=== PATIENT | female | born 1995 | race African-American/Black ===

== ENCOUNTER 2019-05-03 20:46 | Emergency (ER) | payer SELFPAY ==
[~2019-05-03] VITALS: Ht 165.1 cm; Wt 96.2 kg
[~2019-05-03 20:46] MED LIST: NITROFURANTOIN100 M2 ORAL; PHENAZOPYRIDIN200 MG ORAL
[2019-05-03 21:15] VITALS: BP 105/76
[2019-05-03] MEDS ORDERED: Lidocaine 1% Plain 30 ml INJ ONE (21:30)
[2019-05-03] MEDS ORDERED: Tetanus/Diptheria/Pertussis IM ONE (21:30)
--- NOTE | 2019-05-03 22:20 | Emergency Room Report ---
History of Present Illness General Chief Complaint: Upper Extremity Injury Source: Patient Present Illness HPI 23-year-old female presents with laceration to the right thumb after cutting, she was cutting vegetables, sliced radially, and a piece of her finger became loose, no numbness tingling severity is moderate, she does endorse some sharp pain aggravated with touch Allergies: Coded Allergies: No Known Allergies (Unverified , 02/09/19) Patient History Past Medical History: see triage record Last Menstrual Period: 04/17/19 Now: No : 1 Para: 1 Reviewed Nursing Documentation: PMH: Agreed; PSxH: Agreed Nursing Documentation-PMH Past Medical History: No Stated History Review of Systems All Other Systems: negative except mentioned in HPI Physical Exam Vital Signs Date Time Temp Pulse Resp B/P (MAP) Pulse Ox O2 Delivery O2 Flow Rate FiO2 05/03/19 21:07 98.8 83 18 105/76 (86) 98 Room Air General Appearance: well appearing, no apparent distress Head: normocephalic, atraumatic ENT: hearing grossly normal, normal voice Neck: full range of motion, supple Respiratory: no respiratory distress, speaking full sentences Musculoskeletal: other - Right thumb avulsion laceration radial aspect distal thumb through and through, radial median ulnar nerve intact Neurologic: alert, normal gait Psychiatric: mood/affect normal Skin: no rash Procedures Laceration/Wound Repair Laceration/Wound Repair : Consent: Verbal Wound Location: upper extremity Wound's Depth, Shape: nail-avulsed Wound Length (cm): 2 Wound Explored: clean Irrigated w/ Saline (ccs): 50 Betadine Prep?: Yes Anesthesia: 1% Lidocaine Volume Anesthetic (ccs): 10 Wound Debrided: minimal Wound Repaired With: sutures Suture Size/Type: 5:0 Number of Sutures: 3 Layer Closure?: Yes Sterile Dressing Applied?: Yes Splint Applied?: No Patient Tolerated: Well Complications: None Progress Patient with avulsion laceration of the distal thumb radial side, through and through, used piece of skin is a flap however nail has partial avulsion laceration unable to be repaired nail was removed Medical Decision Making Diagnostic Impression: Primary Impression: Laceration of thumb with damage to nail Qualified Codes: S61.111A - Laceration without foreign body of right thumb with damage to nail, initial encounter ER Course Patient with laceration to the thumb radial aspect partial avulsion laceration Skin flap placed. Patient given TDAP and abx follow-up with pcp. Other X-Ray Diagnostic Results Other X-Ray Diagnostic Results : X-Ray ordered: Right Hand # of Views/Limited Vs Complete: 3 View Indication: Pain Interpretation: no dislocation, no fractures Impression: Other - soft tissue defect radial aspect of thumb partial Electronically Signed by: Jose Howell MD Last Vital Signs Date Time Temp Pulse Resp B/P (MAP) Pulse Ox O2 Delivery O2 Flow Rate FiO2 05/03/19 21:07 98.8 83 18 105/76 (86) 98 Room Air Disposition: HOME, SELF-CARE Condition: Stable Scripts Cephalexin* (KEFLEX*) 500 Mg Tablet 500 MG ORAL EVERY 6 HOURS, #28 CAP Prov: Jose Howell MD 05/03/19 Referrals: NOT CHOSEN IPA/,REFERRING (PCP) [facility] Patient Instructions: Nail Bed Injury, [id number] Additional Instructions: The patient was provided with discharge instructions, notified to follow-up with a primary care doctor and or specialist in the next 24-48 hours, and to return to the ED if they have worsening of their symptoms. Please note that this report is being documented using [employer] technology. This can lead to erroneous entry secondary to incorrect interpretation by the dictating instrument. Jose Howell MD May 03, 2019 22:20
[2019-05-03] MEDS ORDERED: CEPHALEXIN500 M1 ORAL (22:29)
[2019-05-03 22:35] VITALS: BP 105/76
--- NOTE | 2019-05-04 14:05 | Diagnostic Imaging Report ---
Indication: Right hand pain, laceration Technique: 3 views right hand Comparison: none Findings: No acute fractures. No dislocations. No significant soft tissue gas demonstrated. No radiopaque foreign body. For joint spaces are preserved Impression: Negative
== END 2019-05-03 22:35 | disposition home or self-care (01) ==
LOC: EMR 21:06
DX: S61.111A Laceration without foreign body of right thumb with damage to nail, initial encounter (principal); W26.0XXA Contact with knife, initial encounter; Y93.G3 Activity, cooking and baking; Y92.9 Unspecified place or not applicable; Z23 Encounter for immunization
CPT/HCPCS: 12001; 73130; 81025; 90471; 90715; 99283; J2001

== ENCOUNTER 2019-09-24 00:29 | Emergency (ER) | payer SELFPAY ==
[~2019-09-24] VITALS: Ht 165.1 cm; Wt 99.8 kg
[~2019-09-24 00:29] MED LIST changes: +CEPHALEXIN500 M1 ORAL
[2019-09-24 00:50] VITALS: BP 130/82
--- NOTE | 2019-09-24 00:50 | NUR ---
ED Nurse Note: Patient walked in from home d/t lower abdominal pain, stated UTI symptoms, burning at peeing. Patient aao x 4 and ambulatory with steady gait. Patient changed into gown. No acute distress noted. Addendum: 09/24/19 at 0058 by IOROPEL ED Nurse Note: Patient walked in from home d/t lower abdominal pain, stated UTI symptoms, burning at peeing. Patient stated LMP was 07/2019 and had a positive test at home. Patient aao x 4 and ambulatory with steady gait. Patient changed into gown. No acute distress noted.
--- NOTE | 2019-09-24 00:56 | NUR ---
ED Nurse Note: ERMD at bedside.
[2019-09-24 01:12] LABS: APPEARANCE,URINE CLEAR; BILIRUBIN, URINE NEGATIVE (NEGATIVE); COLOR,URINE PALE YELLOW; GLUCOSE, URINE (UA) NEGATIVE (NEGATIVE); KETONES,URINE NEGATIVE (NEGATIVE); LEUKOCYTE ESTERASE ,URINE NEGATIVE (NEGATIVE); NITRITE,URINE NEGATIVE (NEGATIVE); PH,URINE 6.5 (4.5-8.0); PROTEIN,URINE NEGATIVE (NEGATIVE); UROBILINOGEN,URINE NORMAL MG/DL (0.0-1.0)
--- NOTE | 2019-09-24 01:12 | Emergency Room Report ---
History of Present Illness General Chief Complaint: Female Urogenital Problems Source: Patient Present Illness HPI 23-year-old female G2, P1 presents complaining of lower abdominal pain and dysuria. Symptoms present for the past 2 weeks. She states her last menstrual cycle was approximately 2 months ago. She denies any vaginal bleeding. No fevers nausea vomiting cough or shortness of breath. He does report vaginal discharge. Allergies: Coded Allergies: No Known Allergies (Unverified , 02/09/19) COVID-19 Screening Contact w/high risk pt: No Recent Travel to affected area: No Experienced COVID-19 symptoms?: No Patient History Last Menstrual Period: 2019 Now: Yes : 2 Para: 1 Reviewed Nursing Documentation: PMH: Agreed; PSxH: Agreed Review of Systems All Other Systems: negative except mentioned in HPI Physical Exam Vital Signs Date Time Temp Pulse Resp B/P (MAP) Pulse Ox O2 Delivery O2 Flow Rate FiO2 09/24/19 00:44 98.6 88 15 133/79 (97) 99 Room Air Sp02 EP Interpretation: reviewed, normal General Appearance: well appearing, no apparent distress Head: normocephalic, atraumatic Eyes: bilateral eye PERRL, bilateral eye EOMI ENT: hearing grossly normal, moist mucus membranes Neck: full range of motion, supple Respiratory: lungs clear, normal breath sounds, no rhonchi, no respiratory distress, no retraction, no wheezing Cardiovascular #1: normal peripheral pulses, regular rate, rhythm, no murmur Gastrointestinal: non tender, soft, non-distended, no guarding Genitourinary: adnexa normal, cervix normal, ext genitalia/vag normal Neurologic: alert, oriented x3, no focal defects Skin: normal color, warm/dry Medical Decision Making Diagnostic Impression: Primary Impression: Abdominal pain during Additional Impression: First trimester ER Course Patient presented with lower abdominal pain dysuria and reports of a positive test. Patient's vital signs were stable. Exam was benign. Differential included UTI, abdominal pain in early , vaginitis to name a few. Laboratory studies demonstrated mild leukocytosis. Urinalysis negative for infection. hCG elevated appropriately. Ultrasound demonstrated single viable intrauterine with a viable heart rate. Wet mount was negative. STD testing was sent. Patient again nontoxic on exam. At this time patient did not have indication for antibiotic treatment and was discharged with OB follow-up. Recommended vitamin. Recommended turn precautions. Laboratory Tests Test 09/24/19 01:01 09/24/19 01:11 Urine Color Pale yellow Urine Appearance Clear Urine pH 6.5 (4.5-8.0) Urine Specific Broussard 1.010 (1.005-1.035) Urine Protein Negative (NEGATIVE) Urine Glucose (UA) Negative (NEGATIVE) Urine Ketones Negative (NEGATIVE) Urine Blood Negative (NEGATIVE) Urine Nitrite Negative (NEGATIVE) Urine Bilirubin Negative (NEGATIVE) Urine Urobilinogen Normal MG/DL (0.0-1.0) Urine Leukocyte Esterase Negative (NEGATIVE) Urine HCG, Qualitative Positive (NEGATIVE) White Blood Count 12.9 K/UL (4.8-10.8) H Red Blood Count 5.09 M/UL (4.20-5.40) Hemoglobin 14.0 G/DL (12.0-16.0) Hematocrit 39.6 % (37.0-47.0) Mean Corpuscular Volume 78 FL (80-99) L Mean Corpuscular Hemoglobin 27.5 PG (27.0-31.0) Mean Corpuscular Hemoglobin Concent 35.4 G/DL (32.0-36.0) Red Cell Distribution Width 11.6 % (11.6-14.8) Platelet Count 177 K/UL (150-450) Mean Platelet Volume 8.1 FL (6.5-10.1) Neutrophils (%) (Auto) 59.7 % (45.0-75.0) Lymphocytes (%) (Auto) 31.7 % (20.0-45.0) Monocytes (%) (Auto) 5.9 % (1.0-10.0) Eosinophils (%) (Auto) 1.7 % (0.0-3.0) Basophils (%) (Auto) 1.1 % (0.0-2.0) Sodium Level 140 MMOL/L (136-145) Potassium Level 3.7 MMOL/L (3.5-5.1) Chloride Level 104 MMOL/L (98-107) Carbon Dioxide Level 27 MMOL/L (21-32) Blood Urea Nitrogen 8 mg/dL (7-18) Creatinine 0.9 MG/DL (0.55-1.30) Estimated Glomerular Filtration Rate > 60 mL/min (>60) Glucose Level 120 MG/DL (74-106) H Calcium Level 8.9 MG/DL (8.5-10.1) Total Bilirubin 0.4 MG/DL (0.2-1.0) Aspartate Amino Transferase (AST) 11 U/L (15-37) L Alanine Aminotransferase (ALT) 22 U/L (12-78) Alkaline Phosphatase 58 U/L (46-116) Total Protein 7.7 G/DL (6.4-8.2) Albumin 3.8 G/DL (3.4-5.0) Globulin 3.9 g/dL Albumin/Globulin Ratio 1.0 (1.0-2.7) Human Chorionic Gonadotropin, Quant [id number] mIU/mL (1-6) H Microbiology Date/Time Source Procedure Growth Status 09/24/19 01:27 Vaginal Wet Prep - Final Complete Last Vital Signs Date Time Temp Pulse Resp B/P (MAP) Pulse Ox O2 Delivery O2 Flow Rate FiO2 09/24/19 00:50 98.6 75 16 130/82 98 Room Air Status: improved Disposition: HOME, SELF-CARE Condition: Stable Matti Alcala M.D. Sep 24, 2019 01:12
--- NOTE | 2019-09-24 01:13 | NUR ---
ED Nurse Note: Blood draw completed and sent to lab.
[2019-09-24 01:45] LABS: BASOPHILS % (AUTO) 1.1 % (0.0-2.0); EOSINOPHILS % (AUTO) 1.7 % (0.0-3.0); HEMATOCRIT 39.6 % (37.0-47.0); LYMPHOCYTES % (AUTO) 31.7 % (20.0-45.0); MEAN CORPUSCULAR VOLUME 78 FL (80-99); MONOCYTES % (AUTO) 5.9 % (1.0-10.0); NEUTROPHILS % (AUTO) 59.7 % (45.0-75.0); PLATELET COUNT 177 K/UL (150-450); RED BLOOD COUNT 5.09 M/UL (4.20-5.40); RED CELL DISTRIBUTION WIDTH 11.6 % (11.6-14.8); WHITE BLOOD COUNT 12.9 K/UL (4.8-10.8)
[2019-09-24 01:54] LABS: ALANINE AMINOTRANSFERASE 22 U/L (12-78); ALBUMIN 3.8 G/DL (3.4-5.0); ALKALINE PHOSPHATASE 58 U/L (46-116); ASPARTATE AMINO TRANSFERASE 11 U/L (15-37); BILIRUBIN,TOTAL 0.4 MG/DL (0.2-1.0); BLOOD UREA NITROGEN 8 mg/dL (7-18); CALCIUM 8.9 MG/DL (8.5-10.1); CARBON DIOXIDE 27 MMOL/L (21-32); CHLORIDE 104 MMOL/L (98-107); CREATININE 0.9 MG/DL (0.55-1.30); POTASSIUM 3.7 MMOL/L (3.5-5.1); SODIUM 140 MMOL/L (136-145)
--- NOTE | 2019-09-24 03:06 | NUR ---
ED Nurse Note: Ultrasound at bedside.
[2019-09-24 03:52] VITALS: BP 132/80
--- NOTE | 2019-09-24 03:52 | NUR ---
ER DISCHARGE NOTE: Patient is cleared to be discharged per ERMD, pt is aox4, on room air, with stable vital signs. pt was given dc instructions, pt was able to verbalize understanding, pt id band and iv site removed intact without complications. pt is able to ambulate with steady gait. pt took all belongings. pt stable upon discharge.
--- NOTE | 2019-09-24 04:25 | Diagnostic Imaging Report ---
EXAM: US First Trimester , Transabdominal and Transvaginal CLINICAL HISTORY: PAIN TECHNIQUE: Real-time transabdominal and transvaginal obstetrical ultrasound of the maternal pelvis and a first trimester with image documentation. Transvaginal imaging was used for better evaluation of the fetus and adnexa. COMPARISON: No relevant prior studies available. FINDINGS: Gestation: There is a single living intrauterine gestation with a heart rate measuring 155 bpm. Average ultrasound gestational age is 7 weeks 3 days with estimated date of delivery of 05/09/20 Placenta/amniotic fluid: There is a trace amount of subchorionic hemorrhage, likely representing implantation bleed. There is a normal amount of amniotic fluid. Uterus/cervix: The uterus is markedly retroflexed measuring approximately 9.5 cm in length. No myometrial mass. Ovaries: Unremarkable. 3.6 and a simple appearing corpus luteal cyst in left ovary. Normal arterial blood flow. Free fluid: No free fluid. IMPRESSION: Single living intrauterine fetus as described above. No acute findings.
== END 2019-09-24 03:52 | disposition home or self-care (01) ==
LOC: EMR 01:25
DX: O26.91 Pregnancy related conditions, unspecified, first trimester (principal); Z3A.01 Less than 8 weeks gestation of pregnancy; O34.81 Maternal care for other abnormalities of pelvic organs, first trimester; N83.12 Corpus luteum cyst of left ovary
CPT/HCPCS: 36415; 76801; 76817; 80053; 81003; 81025; 84702; 85025; 87210; 87491; 87590; 99284

== ENCOUNTER 2020-03-26 20:12 | Emergency (ER) | payer MEDICAID ==
[~2020-03-26] VITALS: Ht 165.1 cm; Wt 103.0 kg
[~2020-03-26 20:12] MED LIST changes: +CEPHALEXIN500 MG ORAL; +CLOTRIMAZOLE15 GM TOPIC; +MONISTAT 35 GM VG
--- NOTE | 2020-03-26 20:20 | NUR ---
ED Nurse Note: Recieved pt from home, here with c/o left ear pain x 2 days at 9/10, pt is 34 weeks , denies any concerns or complications of .
[2020-03-26 20:40] VITALS: BP 106/66
[2020-03-26] MEDS ORDERED: AMOXICILLIN500 MG ORAL (20:44)
[2020-03-26] MEDS ORDERED: TYLENOL EXTRA500 MG ORAL (20:44)
[2020-03-26 20:50] VITALS: BP 106/66
--- NOTE | 2020-03-26 20:50 | NUR ---
ER DISCHARGE NOTE: Patient is cleared to be discharged per ERMD, pt is aox4, on room air, with stable vital signs. pt was given dc and prescription instructions, pt was able to verbalize understanding, pt id band and removed without complications. pt is able to ambulate with steady gait. pt took all belongings.
--- NOTE | 2020-03-26 20:59 | Emergency Room Report ---
History of Present Illness General Chief Complaint: Neck Pain Source: Patient Present Illness HPI Disclaimer: Please note that this report is being documented using [employer] technology. This can lead to erroneous entry secondary to incorrect interpretation by the dictating instrument. HPI: 24-year-old female G2, P1 approximately 34 weeks presents with left ear pain radiating down to the left neck. Symptoms present for the past few days. She denies any fever. She did report a mild sore throat. No vomiting. No diarrhea. No abdominal pain or vaginal bleeding. She does have follow-up with her [facility] in 1 week. 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 COVID-19 Screening: Negative COVID-19 COVID-19 Testing Source: 03/07 Patient History Last Menstrual Period: 07/31 Now: Yes - 34 wks : 2 Para: 1 Reviewed Nursing Documentation: PMH: Agreed; PSxH: Agreed Nursing Documentation-PMH Past Medical History: No Stated History Review of Systems All Other Systems: negative except mentioned in HPI Physical Exam Vital Signs Date Time Temp Pulse Resp B/P (MAP) Pulse Ox O2 Delivery O2 Flow Rate FiO2 03/26/20 20:17 98.8 98 16 106/66 (79) 99 Room Air Sp02 EP Interpretation: reviewed, normal General Appearance: well appearing, no apparent distress Head: normocephalic, atraumatic Eyes: bilateral eye PERRL, bilateral eye EOMI ENT: hearing grossly normal, moist mucus membranes, other - Left TM erythematous, right TM normal Neck: full range of motion, supple, other - Left sided anterior cervical adenopathy noted Respiratory: lungs clear, normal breath sounds, no rhonchi, no respiratory distress, no retraction, no wheezing Cardiovascular #1: normal peripheral pulses, regular rate, rhythm, no murmur Gastrointestinal: non tender, soft, no guarding, other - Gravid uterus Neurologic: alert, oriented x3, no focal defects Skin: normal color, warm/dry Medical Decision Making Diagnostic Impression: Primary Impression: Otitis media ER Course Patient presented with left ear pain. Differential included but not limited to otitis media, dental pain, dental infection, strep throat to name a few. She did have erythema of her left TM with associated tender left anterior cervical adenopathy. At this time I will treat for otitis media. She was afebrile. But is 34 weeks . She was started on amoxicillin and Tylenol as needed. She does have follow-up with her [employer] [facility] in 1 week. She was given return precautions. Stable for discharge. Last Vital Signs Date Time Temp Pulse Resp B/P (MAP) Pulse Ox O2 Delivery O2 Flow Rate FiO2 03/26/20 20:17 98.8 98 16 106/66 (79) 99 Room Air Disposition: HOME, SELF-CARE Condition: Stable Scripts Acetaminophen* (TYLENOL EXTRA STRENGTH*) 500 Mg Tablet 500 MG ORAL Q8H PRN for For Pain, #30 TAB 0 Refills Prov: Matti Alcala M.D. 03/26/20 Amoxicillin* (AMOXIL*) 500 Mg Capsule 500 MG ORAL BID, #14 CAP Prov: Matti Alcala M.D. 03/26/20 Referrals: [facility] Patient Instructions: Otitis Media, Adult, [id number] Additional Instructions: Patient is instructed to follow-up with her primary care doctor, primary care clinic or [facility] in 1 to 2 days. Patient instructed to return for any worsening symptoms or concerns. Matti Alcala M.D. Mar 26, 2020 20:59
== END 2020-03-26 20:50 | disposition home or self-care (01) ==
LOC: EMR 20:42
DX: O26.893 Other specified pregnancy related conditions, third trimester (principal); H66.92 Otitis media, unspecified, left ear; Z3A.34 34 weeks gestation of pregnancy
CPT/HCPCS: 99282